=== PATIENT | female | born 1995 | race Caucasian/White ===

== ENCOUNTER → 2022-07-29 | Outpatient (CLI) | payer OTHER ==
[~2022-07-29] MED LIST: PROHANCE 279.3MG/ML 5ML VIAL As Ordered ONE
== END ==
LOC: M RAD 09:19
PROVIDERS: ATTEND Internal Medicine Endocrinology, Diabetes & Metabolism
DX: D35.2 Benign neoplasm of pituitary gland (principal)
CPT/HCPCS: 70553; A9576

== ENCOUNTER 2022-10-15 09:24 | Emergency (ER) | payer OTHER ==
[~2022-10-15] VITALS: Ht 149.9 cm; Wt 98.3 kg
[2022-10-15 11:51] VITALS: BP 126/77
[2022-10-15] MEDS ORDERED: ACETAMINOPHEN 500 MG TAB PO ONE (11:55)
== END 2022-10-15 12:01 | disposition home or self-care (01) ==
LOC: M ED 09:24
DX: J09.X2 Influenza due to identified novel influenza A virus with other respiratory manifestations (principal)